=== PATIENT | female | born 1980 | race African-American/Black ===

== ENCOUNTER 2017-04-01 00:10 | Emergency (ER) | payer MEDICAID ==
[~2017-04-01] VITALS: Ht 162.6 cm; Wt 96.6 kg
[~2017-04-01 00:10] MED LIST: ARIP2TAB; MIRT30TA3; NUTRCAP
[2017-04-01 00:22] VITALS: BP 137/88
[2017-04-01 01:20] LABS: Urine Bilirubin Negative (Negative); Urine Blood Negative /uL (Negative); Urine Color Yellow (Yellow); Urine Glucose Normal (Normal); Urine Ketone Negative (Negative); Urine Nitrite Negative (Negative); Urine RBC 2 /hpf (0 - 4); Urine Squamous Epithelial Cell FEW /hpf (<5); Urine Urobilinogen Normal (Negative); Urine pH 6.5 (5.0-8.0)
== END 2017-04-01 01:44 | disposition home or self-care (01) ==
LOC: ER 00:10
DX: N39.0 Urinary tract infection, site not specified (principal); F17.210 Nicotine dependence, cigarettes, uncomplicated; Z87.440 Personal history of urinary (tract) infections
CPT/HCPCS: 81001; 81025

== ENCOUNTER 2018-07-07 10:21 | Observation (INO) | payer MEDICAID ==
[~2018-07-07] VITALS: Ht 162.6 cm; Wt 99.3 kg
[~2018-07-07 10:21] MED LIST changes: -ARIP2TAB; +ARIP2TAB PO; +DIP25C PO; -MIRT30TA3; -NUTRCAP; +NUTRCAP PO
[2018-07-07] MEDS ORDERED: ACETAMINOPHEN 325 MG TAB PO ONE (17:00)
[2018-07-07 18:52] LABS: Albumin 3.4 g/dL (3.4-5.0); BUN/Creatinine Ratio 11.1; Calcium 8.1 mg/dL (8.5-10.1); Magnesium 2.2 mg/dL (1.6-2.6); Potassium 3.8 mmol/L (3.5-5.1)
[2018-07-07 18:54] LABS: Basophils # (auto) 0 uL; Basophils % (auto) 0.5 % (0.0-2.0); Bilirubin, Total 0.3 mg/dL (0.2-1.0); Eosinophils # (auto) 0.1 uL; Eosinophils % (auto) 1.4 % (0.0-7.0); Hematocrit 37.8 % (36.0-46.0); Hemoglobin 12.7 g/dL (12.2-16.2); Lymphocytes % (auto) 37.2 % (10.0-50.0); Mean Corpuscular Hemoglobin 30.7 pg (28.0-32.0); Mean Corpuscular Hgb Conc. 33.6 g/dL (32.0-36.0); Mean Corpuscular Volume 91.4 fL (80.0-100.0); Monocytes # (auto) 0.6 uL; Monocytes % (auto) 7.6 % (0.0-12.0); Neutrophils # (auto) 4.3 uL; Neutrophils % (auto) 53.3 % (37.0-80.0); Nucleated Red Blood Cells % 0.2 %; Platelet Count (auto) 272 10^3/uL (140-450); Red Blood Cells 4.14 10^6/uL (4.0-5.20); Red Cell Distribution Width 13.6 % (11.8-14.3); Total Protein 7.6 g/dL (6.4-8.2); White Blood Cell 8.1 10^3/uL (4.4-10.8)
[2018-07-07 19:08] LABS: INR 0.93 (0.9-1.15); Partial Thromboplastin Time 25.7 sec (23.78-33.04)
[2018-07-07] MEDS ORDERED: KETOROLAC TROMETH 30 MG/ML 1ML VIAL IV ONE (22:00)
[2018-07-07] MEDS ORDERED: cefTRIAXone 1GM/10ml IVPUSH 10 ML IV ONE (22:00)
[2018-07-07 22:55] VITALS: BP 146/72
== END 2018-07-07 23:22 | disposition home or self-care (01) | DRG 347 ==
LOC: ER 10:21 → OVERFLOW 10:22 → ER 23:22
PROVIDERS: ADMIT Family Medicine; ATTEND Family Medicine
DX: S33.5XXA Sprain of ligaments of lumbar spine, initial encounter (principal); N30.00 Acute cystitis without hematuria; F17.210 Nicotine dependence, cigarettes, uncomplicated; X58.XXXA Exposure to other specified factors, initial encounter; Y92.89 Other specified places as the place of occurrence of the external cause; Y93.89 Activity, other specified; Y99.8 Other external cause status
CPT/HCPCS: 36415; 71045; 72100; 80053; 83735; 83880; 84702; 85025; 85610; 85730; 93970; 96374; 96375; 99285; G0378; J0696; J1885; 93005

== ENCOUNTER 2021-02-27 07:36 | Emergency (ER) | payer MEDICAID ==
[~2021-02-27] VITALS: Ht 162.6 cm; Wt 99.8 kg
[2021-02-27 07:36] VITALS: BP 148/90
[2021-02-27 08:25] LABS: Basophils # (auto) 0 10 ^3/uL (0-0.2); Basophils % (auto) 0.4 % (0.0-2.0); Eosinophils # (auto) 0.1 10 ^3/uL (0-0.8); Eosinophils % (auto) 0.9 % (0.0-7.0); Hematocrit 38.7 % (36.0-46.0); Hemoglobin 13.1 g/dL (12.2-16.2); Lymphocytes # (auto) 2.6 10 ^3/uL (0.4-5.4); Lymphocytes % (auto) 33.9 % (10.0-50.0); Mean Corpuscular Hemoglobin 30.4 pg (28.0-32.0); Mean Corpuscular Hgb Conc. 33.8 g/dL (32.0-36.0); Mean Corpuscular Volume 90.2 fL (80.0-100.0); Monocytes # (auto) 0.5 10 ^3/uL (0-1.3); Monocytes % (auto) 6.4 % (0.0-12.0); Neutrophils # (auto) 4.5 10 ^3/uL (1.6-8.6); Neutrophils % (auto) 58.4 % (37.0-80.0); Nucleated Red Blood Cells % 0.2 %; Platelet Count (auto) 246 10^3/uL (140-450); Red Blood Cells 4.29 10^6/uL (4.0-5.20); Red Cell Distribution Width 13.5 % (11.8-14.3); White Blood Cell 7.8 10^3/uL (4.4-10.8)
[2021-02-27 08:39] LABS: Albumin 3.5 g/dL (3.4-5.0); Calcium 8.7 mg/dL (8.5-10.1); Potassium 3.3 mmol/L (3.5-5.1)
[2021-02-27 08:43] LABS: BUN/Creatinine Ratio 13.6; Bilirubin, Total 0.4 mg/dL (0.2-1.0); Total Protein 7.4 g/dL (6.4-8.2)
== END 2021-02-27 10:42 | disposition home or self-care (01) ==
LOC: ER 07:36
DX: R60.9 Edema, unspecified (principal); F19.20 Other psychoactive substance dependence, uncomplicated; F17.200 Nicotine dependence, unspecified, uncomplicated; F12.10 Cannabis abuse, uncomplicated; Z87.440 Personal history of urinary (tract) infections
CPT/HCPCS: 36415; 80053; 83880; 85025; 93970

== ENCOUNTER 2021-09-22 15:37 | Emergency (ER) | payer MEDICAID ==
[~2021-09-22] VITALS: Ht 162.6 cm; Wt 106.6 kg
[2021-09-22 16:16] LABS: Urine Bacteria FEW /hpf (None Seen); Urine Blood Negative /uL (Negative); Urine Specific Gravity 1.016 (1.001-1.035); Urine WBC 3 /hpf (0 - 5)
[2021-09-22 16:38] LABS: Basophils # (auto) 0 10 ^3/uL (0-0.2); Basophils % (auto) 0.5 % (0.0-2.0); Eosinophils # (auto) 0 10 ^3/uL (0-0.8); Eosinophils % (auto) 0.6 % (0.0-7.0); Hematocrit 38.1 % (36.0-46.0); Hemoglobin 12.7 g/dL (12.2-16.2); Lymphocytes # (auto) 2.7 10 ^3/uL (0.4-5.4); Lymphocytes % (auto) 39.2 % (10.0-50.0); Mean Corpuscular Hemoglobin 29.5 pg (28.0-32.0); Mean Corpuscular Hgb Conc. 33.2 g/dL (32.0-36.0); Mean Corpuscular Volume 88.7 fL (80.0-100.0); Monocytes # (auto) 0.5 10 ^3/uL (0-1.3); Monocytes % (auto) 7.4 % (0.0-12.0); Neutrophils # (auto) 3.6 10 ^3/uL (1.6-8.6); Neutrophils % (auto) 52.3 % (37.0-80.0); Nucleated Red Blood Cells % 0.1 %; Red Cell Distribution Width 13.4 % (11.8-14.3); White Blood Cell 6.9 10^3/uL (4.4-10.8)
[2021-09-22 16:51] LABS: Albumin 3.3 g/dL (3.4-5.0); BUN/Creatinine Ratio 12.3; Calcium 8.5 mg/dL (8.5-10.1); Potassium 3.7 mmol/L (3.5-5.1)
[2021-09-22 16:54] LABS: Bilirubin, Total 0.4 mg/dL (0.2-1.0); Total Protein 7.6 g/dL (6.4-8.2)
[2021-09-22 19:40] VITALS: BP 142/87
== END 2021-09-22 20:49 | disposition home or self-care (01) ==
LOC: ER 15:37
DX: N39.0 Urinary tract infection, site not specified (principal); R22.43 Localized swelling, mass and lump, lower limb, bilateral; E44.0 Moderate protein-calorie malnutrition; F17.210 Nicotine dependence, cigarettes, uncomplicated; Z68.41 Body mass index [BMI] 40.0-44.9, adult; Z91.040 Latex allergy status; Z88.6 Allergy status to analgesic agent; Z79.899 Other long term (current) drug therapy; Z90.89 Acquired absence of other organs; Z98.890 Other specified postprocedural states
CPT/HCPCS: 36415; 80053; 81001; 85025; 93970

== ENCOUNTER 2022-01-31 14:46 | Emergency (ER) | payer MEDICAID ==
[~2022-01-31] VITALS: Ht 162.6 cm; Wt 106.1 kg
[2022-01-31 17:48] LABS: Urine Bacteria FEW /hpf (None Seen); Urine Blood 3+ /uL (Negative); Urine Specific Gravity 1.009 (1.001-1.035); Urine WBC 2 /hpf (0 - 5)
[2022-01-31 19:01] LABS: Basophils # (auto) 0 10 ^3/uL (0-0.2); Basophils % (auto) 0.3 % (0.0-2.0); Eosinophils # (auto) 0.1 10 ^3/uL (0-0.8); Eosinophils % (auto) 0.9 % (0.0-7.0); Hematocrit 37.9 % (36.0-46.0); Hemoglobin 12.6 g/dL (12.2-16.2); Lymphocytes # (auto) 2.9 10 ^3/uL (0.4-5.4); Lymphocytes % (auto) 36.9 % (10.0-50.0); Mean Corpuscular Hemoglobin 29.5 pg (28.0-32.0); Mean Corpuscular Hgb Conc. 33.3 g/dL (32.0-36.0); Mean Corpuscular Volume 88.5 fL (80.0-100.0); Monocytes # (auto) 0.5 10 ^3/uL (0-1.3); Monocytes % (auto) 6.7 % (0.0-12.0); Neutrophils # (auto) 4.4 10 ^3/uL (1.6-8.6); Neutrophils % (auto) 55.2 % (37.0-80.0); Nucleated Red Blood Cells % 0.1 %; Red Blood Cells 4.29 10^6/uL (4.0-5.20); Red Cell Distribution Width 13.3 % (11.8-14.3); White Blood Cell 7.9 10^3/uL (4.4-10.8)
[2022-01-31 19:25] LABS: Albumin 3.7 g/dL (3.4-5.0); Calcium 8.7 mg/dL (8.5-10.1); Potassium 3.3 mmol/L (3.5-5.1)
[2022-01-31 19:30] LABS: BUN/Creatinine Ratio 8.2; Bilirubin, Total 0.5 mg/dL (0.2-1.0); Total Protein 7.9 g/dL (6.4-8.2)
[2022-01-31 19:55] VITALS: BP 149/93
== END 2022-01-31 20:00 | disposition home or self-care (01) ==
LOC: ER 14:46
DX: N93.8 Other specified abnormal uterine and vaginal bleeding (principal); F12.10 Cannabis abuse, uncomplicated; F17.210 Nicotine dependence, cigarettes, uncomplicated; Z91.040 Latex allergy status
CPT/HCPCS: 36415; 76830; 76856; 80053; 81001; 84702; 85025

== ENCOUNTER 2022-05-30 06:41 | Emergency (ER) | payer MEDICAID ==
[~2022-05-30] VITALS: Ht 162.6 cm; Wt 107.5 kg
[2022-05-30 06:51] VITALS: BP 152/91
[2022-05-30 08:17] LABS: Basophils # (auto) 0 10 ^3/uL (0-0.2); Basophils % (auto) 0.8 % (0.0-2.0); Eosinophils # (auto) 0 10 ^3/uL (0-0.8); Eosinophils % (auto) 0.8 % (0.0-7.0); Hematocrit 37.8 % (36.0-46.0); Hemoglobin 12.2 g/dL (12.2-16.2); Lymphocytes # (auto) 2.5 10 ^3/uL (0.4-5.4); Lymphocytes % (auto) 40.9 % (10.0-50.0); Mean Corpuscular Hemoglobin 28.8 pg (28.0-32.0); Mean Corpuscular Hgb Conc. 32.2 g/dL (32.0-36.0); Mean Corpuscular Volume 89.5 fL (80.0-100.0); Monocytes # (auto) 0.4 10 ^3/uL (0-1.3); Monocytes % (auto) 5.7 % (0.0-12.0); Neutrophils # (auto) 3.2 10 ^3/uL (1.6-8.6); Neutrophils % (auto) 51.8 % (37.0-80.0); Red Blood Cells 4.23 10^6/uL (4.0-5.20); Red Cell Distribution Width 13.4 % (11.8-14.3); White Blood Cell 6.2 10^3/uL (4.4-10.8)
[2022-05-30 08:33] LABS: BUN/Creatinine Ratio 12.9; Calcium 8.4 mg/dL (8.5-10.1); Potassium 3.5 mmol/L (3.5-5.1)
[2022-05-30 08:40] LABS: Urine Bacteria FEW /hpf (None Seen); Urine Blood Negative /uL (Negative); Urine Mucus FEW (None Seen); Urine Specific Gravity 1.025 (1.001-1.035); Urine WBC 2 /hpf (0 - 5)
[2022-05-30] MEDS ORDERED: POTA8TAB2 PO (08:59)
[2022-05-30] MEDS ORDERED: FURO1TAB31 PO (08:59)
== END 2022-05-30 09:25 | disposition home or self-care (01) ==
LOC: ER 06:41
DX: R60.0 Localized edema (principal); E66.01 Morbid (severe) obesity due to excess calories; F17.210 Nicotine dependence, cigarettes, uncomplicated; Z68.41 Body mass index [BMI] 40.0-44.9, adult; Z90.49 Acquired absence of other specified parts of digestive tract; Z79.899 Other long term (current) drug therapy; Z88.8 Allergy status to other drugs, medicaments and biological substances; Z91.040 Latex allergy status
CPT/HCPCS: 36415; 80048; 81001; 83880; 84550; 85025; 93970

== ENCOUNTER 2022-09-28 17:13 | Emergency (ER) | payer MEDICAID ==
[~2022-09-28] VITALS: Ht 162.6 cm; Wt 104.3 kg
[~2022-09-28 17:13] MED LIST changes: +FURO1TAB31 PO; +POTA8TAB2 PO
[2022-09-28 18:03] VITALS: BP 146/93
[2022-09-28 19:02] LABS: Basophils # (auto) 0 10 ^3/uL (0-0.2); Basophils % (auto) 0.4 % (0.0-2.0); Eosinophils # (auto) 0 10 ^3/uL (0-0.8); Eosinophils % (auto) 0.6 % (0.0-7.0); Hematocrit 40.5 % (36.0-46.0); Hemoglobin 13.3 g/dL (12.2-16.2); Lymphocytes # (auto) 2.8 10 ^3/uL (0.4-5.4); Lymphocytes % (auto) 32.8 % (10.0-50.0); Mean Corpuscular Hemoglobin 29.6 pg (28.0-32.0); Mean Corpuscular Hgb Conc. 32.7 g/dL (32.0-36.0); Mean Corpuscular Volume 90.3 fL (80.0-100.0); Monocytes # (auto) 0.5 10 ^3/uL (0-1.3); Monocytes % (auto) 6.1 % (0.0-12.0); Neutrophils # (auto) 5.1 10 ^3/uL (1.6-8.6); Neutrophils % (auto) 60.1 % (37.0-80.0); Nucleated Red Blood Cells % 0.1 %; Red Blood Cells 4.49 10^6/uL (4.0-5.20); Red Cell Distribution Width 13.4 % (11.8-14.3); White Blood Cell 8.5 10^3/uL (4.4-10.8)
[2022-09-28 19:48] LABS: Albumin 3.8 g/dL (3.4-5.0); BUN/Creatinine Ratio 14.9; Calcium 9.3 mg/dL (8.5-10.1); Potassium 4.1 mmol/L (3.5-5.1)
[2022-09-28 19:56] LABS: Bilirubin, Total 0.3 mg/dL (0.2-1.0); Total Protein 7.7 g/dL (6.4-8.2)
[2022-09-28] MEDS ORDERED: HYDROcodone-ACET 5/325MG TAB PO ONE (23:00)
== END 2022-09-29 00:09 | disposition home or self-care (01) ==
LOC: ER 17:13
DX: M25.462 Effusion, left knee (principal); F17.210 Nicotine dependence, cigarettes, uncomplicated; F41.9 Anxiety disorder, unspecified; F32.9 Major depressive disorder, single episode, unspecified; Z91.040 Latex allergy status; Z88.6 Allergy status to analgesic agent
CPT/HCPCS: 36415; 73562; 80053; 83880; 84484; 85025; 93971

== ENCOUNTER 2022-11-12 01:20 | Emergency (ER) | payer MEDICAID ==
[~2022-11-12] VITALS: Ht 162.6 cm; Wt 104.0 kg
[2022-11-12 03:23] LABS: Urine Bacteria NONE SEEN /hpf (None Seen); Urine Blood 3+ /uL (Negative); Urine Mucus FEW (None Seen); Urine Specific Gravity 1.024 (1.001-1.035); Urine WBC 13 /hpf (0 - 5)
[2022-11-12 03:26] LABS: Basophils # (auto) 0 10 ^3/uL (0-0.2); Basophils % (auto) 0.5 % (0.0-2.0); Eosinophils # (auto) 0.1 10 ^3/uL (0-0.8); Eosinophils % (auto) 0.8 % (0.0-7.0); Hematocrit 37.3 % (36.0-46.0); Hemoglobin 12.5 g/dL (12.2-16.2); Lymphocytes % (auto) 39.2 % (10.0-50.0); Mean Corpuscular Hgb Conc. 33.5 g/dL (32.0-36.0); Mean Corpuscular Volume 89.6 fL (80.0-100.0); Monocytes # (auto) 0.6 10 ^3/uL (0-1.3); Monocytes % (auto) 7.5 % (0.0-12.0); Neutrophils # (auto) 3.9 10 ^3/uL (1.6-8.6); Nucleated Red Blood Cells % 0.1 %; Red Blood Cells 4.16 10^6/uL (4.0-5.20); Red Cell Distribution Width 13.3 % (11.8-14.3); White Blood Cell 7.5 10^3/uL (4.4-10.8)
[2022-11-12 03:53] LABS: Albumin 3.5 g/dL (3.4-5.0); BUN/Creatinine Ratio 17.6; Calcium 8.8 mg/dL (8.5-10.1); Potassium 3.7 mmol/L (3.5-5.1)
[2022-11-12 03:56] LABS: Bilirubin, Total 0.3 mg/dL (0.2-1.0); Total Protein 7.4 g/dL (6.4-8.2)
[2022-11-12] MEDS ORDERED: cefTRIAXone SOD 1,000 MG VL IM ONE (04:30)
[2022-11-12] MEDS ORDERED: DOCUSATE SOD 100 MG CAP PO ONE (04:30)
[2022-11-12] MEDS ORDERED: NITR-87 PO (05:23)
[2022-11-12 06:56] VITALS: BP 142/95
== END 2022-11-12 06:55 | disposition home or self-care (01) ==
LOC: ER 01:20
DX: N39.0 Urinary tract infection, site not specified (principal); F17.210 Nicotine dependence, cigarettes, uncomplicated; F41.9 Anxiety disorder, unspecified; F32.9 Major depressive disorder, single episode, unspecified; Z90.49 Acquired absence of other specified parts of digestive tract; Z88.6 Allergy status to analgesic agent; Z91.040 Latex allergy status; Z79.899 Other long term (current) drug therapy
CPT/HCPCS: 36415; 80053; 81001; 81025; 83690; 85025; 96372; 99283; J0696

== ENCOUNTER 2025-02-26 02:14 | Emergency (ER) | payer MEDICAID ==
[~2025-02-26] VITALS: Ht 162.6 cm; Wt 111.3 kg
[~2025-02-26 02:14] MED LIST changes: -DIP25C PO; +DIPH25CA51 PO; +NITR-87 PO; -POTA8TAB2 PO; +POTA8TAB38 PO
--- NOTE | 2025-02-26 02:28 | ED.PDOC ---
Back pain HPI HPI Comments C/C of lower leg edema x4 days. States recently started oral control approximally 1 month ago. Pt states she has not sat for prolonged periods, nor had injury, but legs have been edematous with no cause. Noted +1 pitting edema to BLE. PMH of Pre-Diabetes. Pt able to ambulate with steady gait. Pt has additional complaint of urinary frequency. Denies dysuria or hematuria. VSS. Pt A&O x4. Denies chest pain, difficulty breathing, shortness of breath, nausea, vomiting, or recent travel. She does state she arm 1 [place]. DENNISE ALEX PA-C, HPI: A 45 YEAR OLD FEMALE PRESENTS TO THE ED WITH COMPLAINT OF BILATERAL LOWER LEG SWELLING. PATIENT STATES SHE HAS BEEN EXPERIENCING BILATERAL LOWER LEG SWELLING FOR THE PAST 4 DAYS. PATIENT NOTES HE HAS A JOB THAT INVOLVES A LOT OF STANDING AND WALKING. PATIENT DENIES FEVER, CHILLS, SHORTNESS OF BREATH, CHEST PAIN, ABDOMINAL PAIN, NAUSEA, VOMITING, HEADACHE, OR OTHER COMPLAINTS. NO OTHER SYMPTOMS OR MODIFYING FACTORS AT THIS TIME. PATIENT IS ALERT, ORIENTED X 4, AND HAS STEADY GAIT. Time Seen by MD: 02:27 Primary Care Provider: unknown Reviewed Notes: Nurses Notes, Medications, Allergies Allergies: Coded Allergies: Latex (Verified Allergy, Intermediate, BURNING, 02/27/21) Ibuprofen (Verified Allergy, Unknown, 02/27/21) Home Meds Active Scripts Potassium Chloride (Klor-Con 8) 8 Meq Tab, 8 MEQ PO DAILY, #10 TAB Prov:MELISSA ALEX 02/26/25 Furosemide (Lasix) 40 Mg Tab, 40 MG PO DAILY for 7 Days, #7 TAB Prov:MELISSA ALEX 02/26/25 Nitrofurantoin Monohydrate Mac (Macrobid) 100 Mg Cap, 100 MG PO BID for 7 Days, #14 CAP Prov:MARCUS BARAJAS MD 11/12/22 Potassium Chloride (Klor-Con 8) 8 Meq Tab, 8 MEQ PO DAILY, #10 TAB Prov:MELISSA ALEX 05/30/22 Furosemide (Lasix) 40 Mg Tab, 40 MG PO DAILY for 10 Days, #10 TAB Prov:MELISSA ALEX 05/30/22 Reported Medications Diphenhydramine Hcl (BENADRYL CAPSULE) 25 Mg Cp, 50 MG PO HS, CP 06/21/17 [place] Aspartate (Lithate) Cap, 600 MG PO HS 07/15/13 Aripiprazole (Abilify) 2 Mg Tab, 20 MG PO HS 07/15/13 Information Source: Patient Mode of Arrival: Ambulatory Timing: Days Duration: Since onset Severity: Moderate Prehospital treatment: None Onset: Spontaneous Associated signs and symptoms: None Past Medical History PAST MEDICAL HISTORY: Anxiety, Depression, UTI'S Surgical History: Appendectomy, Hernia Repair DIRECTOR OF SURGERY History: No Pertinent DIRECTOR OF SURGERY History Family History Family History: Reviewed,noncontributory to illness, Family hx of DM, Family hx of Cancer, Family hx of heart fady Social History Smoker: Cigarettes, Less Than 1 Pack/Day Alcohol: Denies ETOH Use Drugs: Denies Drug Use Lives In: Home Constitutional: denies: chills, diaphoresis, fatigue, fever, malaise, sweats, weakness, others EENTM: denies: blurred vision, double vision, ear bleeding, ear discharge, ear drainage, ear pain, ear ringing, eye pain, eye redness, hearing loss, mouth pain, mouth swelling, nasal discharge, nose bleeding, nose congestion, nose pain, photophobia, tearing, throat pain, throat swelling, voice changes, others Respiratory: denies: cough, hemoptysis, orthopnea, SOB at rest, shortness of breath, SOB with excertion, stridor, wheezing, others Cardiovascular: denies: chest pain, dizzy spells, diaphoresis, Dyspnea on e xertion, edema, irregular heart beat, left arm pain, lightheadedness, palpitations, PND, syncope, others Gastrointestinal: denies: abdomen distended, abdominal pain, blood streaked bowels, constipated, diarrhea, dysphagia, difficulty swallowing, hematemesis, melena, nausea, poor appetite, poor fluid intake, rectal bleeding, rectal pain, vomiting, others Genitourinary: denies: abnormal vagina bleeding, burning, dyspareunia, dysuria, flank pain, frequency, hematuria, incontinence, pain, , vagina discharge, urgency, others Neurological: denies: dizziness, fainting, headache, left sided numbness, left sided weakness, numbness, paresthesia, pre-existing deficit, right sided numbness, right sided weakness, seizure, speech problems, tingling, tremors, weakness, others Musculoskeletal: reports: others (BILATERAL LOWER LEG SWELLING); denies: back pain, gout, joint pain, joint swelling, muscle pain, muscle stiffness, neck pain Integumetry: denies: bruises, change in color, change in hair/nails, dryness, laceration, lesions, lumps, rash, wounds, others Allergic/Immunocompromised: denies: Difficulty Healing, Frequent Infections, Hives, Itching, others Hematologic/Lymphatic: denies: anemia, blood clots, easy bleeding, easy bruising, swollen glands, others Endocrine: denies: excessive hunger, excessive sweating, excessive thirst, excessive urination, flushing, intolerance to cold, intolerance to heat, unexplained weight gain, unexplained weight loss, others Psychiatric: denies: anxiety, bipolar disorder, depression, hopeless, panic disorder, schizophrenia, sleepless, suicidal, others Physical Exam General Appearance: No Apparent Distress, Obese HEENT: Normal ENT Inspection, Pharynx Normal, TMs Normal Neck: Full Range of Motion, Non-Tender Respiratory: Lungs Clear, No Respiratory Distress, Normal Breath Sounds Cardiovascular: No Edema, No JVD, No Murmur, No Gallop, Normal Peripheral Pulses, Regular Rate/Rhythm Breast Exam: Deferred Gastrointestinal: No Organomegaly, Non Tender, No Pulsatile Mass, Normal Bowel Sounds, Soft Genitalia: Deferred Pelvic: Deferred Rectal: Deferred Extremities: Leg edema, No calf tenderness, Normal capillary refill, Normal range of motion, Non-tender, Pedal edema (Plus one pedal edema strength sensory motion intact positive pedal pulses), Swelling (BILATERAL LOWER LEGS, NO REDNESS AND SKIN RASH, NO DVT SIGNS. ) Musculoskeletal : Apperance: Normal Neurologic: Alert, senior marketing coordinator II-XII nml as Tested, No Motor Deficits, Normal Affect, Normal Mood, No Sensory Deficits Cerebellar Function: Normal Reflexes: Normal Skin: Dry, Normal Color, Warm Peripheral Pulses: 2+ carotid (R), 2+ carotid (L), 2+ dorsalis pedis (R), 2+ dorsalis pedis (L) Lymphatic: No Adenopathy Was a procedure done? Was a procedure done?: No Back Pain Differential Dx Differential Diagnosis: Musculoskeletal Pain, Strain, Other (CHF, acute renal failure, DVT) Other Differential Diagnosis DEPENDENT EDEMA OF LOWER LEGS X-Ray, Labs, Meds, VS Vital Signs Date Time Temp Pulse Resp B/P (MAP) Pulse Ox O2 Delivery O2 Flow Rate FiO2 02/26/25 03:24 98.9 82 19 146/91 (109) 98 98.9 02/26/25 03:24 82 19 98 Room Air 02/26/25 02:36 99.2 91 16 150/85 (106) 97 99.2 Lab Test 02/26/25 05:03 02/26/25 03:36 02/26/25 02:34 Range/Units D-Dimer, Quantitative 0.83 H 0.0-0.49 mg/L FEU White Blood Count 7.4 4.4-10.8 10^3/uL Red Blood Count 3.78 L 4.0-5.20 10^6/uL Hemoglobin 11.1 L 12.2-16.2 g/dL Hematocrit 33.3 L 36.0-46.0 % Mean Corpuscular Volume 88.1 80.0-100.0 fL Mean Corpuscular Hemoglobin 29.5 28.0-32.0 pg Mean Corpuscular Hemoglobin Concent 33.4 32.0-36.0 g/dL Red Cell Distribution Width 13.0 11.8-14.3 % Platelet Count 244 140-450 10^3/uL Mean Platelet Volume 7.7 6.9-10.8 fL Neutrophils (%) (Auto) 52.5 37.0-80.0 % Lymphocytes (%) (Auto) 40.5 10.0-50.0 % Monocytes (%) (Auto) 5.3 0.0-12.0 % Eosinophils (%) (Auto) 1.3 0.0-7.0 % Basophils (%) (Auto) 0.4 0.0-2.0 % Neutrophils # (Auto) 3.9 1.6-8.6 10 ^3/uL Lymphocytes # (Auto) 3.0 0.4-5.4 10 ^3/uL Monocytes # (Auto) 0.4 0-1.3 10 ^3/uL Eosinophils # (Auto) 0.1 0-0.8 10 ^3/uL Basophils # (Auto) 0 0-0.2 10 ^3/uL Nucleated Red Blood Cells 0.0 % Sodium Level 137 136-145 mmol/L Potassium Level 3.6 3.5-5.1 mmol/L Chloride Level 105 98-107 mmol/L Carbon Dioxide Level 23 20-31 mmol/L Anion Gap 9 5-15 Blood Urea Nitrogen 10 9-23 mg/dL Creatinine 0.93 0.550-1.02 mg/dL Glomerular Filtration Rate Calc 78 >90 mL/min BUN/Creatinine Ratio 10.8 10.0-20.0 Serum Glucose 192 H 74-106 mg/dL Calcium Level 9.3 8.7-10.4 mg/dL Total Bilirubin 0.2 0.2-1.0 mg/dL Aspartate Amino Transferase (AST) 15 13-40 U/L Alanine Aminotransferase (ALT) 17 7-40 U/L Alkaline Phosphatase 51 46-116 U/L B-Type Natriuretic Peptide 34.30 0-100 pg/mL Total Protein 7.1 5.7-8.2 g/dL Albumin 4.1 3.2-4.8 g/dL Urine Color Colorless Yellow Urine Clarity Clear Clear Urine pH 5.5 5.0-9.0 Urine Specific [place] 1.008 1.001-1.035 Urine Protein Negative Negative Urine Ketones Negative Negative Urine Blood 1+ H Negative /uL Urine Nitrite Negative Negative Urine Bilirubin Negative Negative Urine Urobilinogen Normal Negative mg/dL Urine Leukocyte Esterase Negative Negative /uL Urine RBC <1 0 - 4 /hpf Urine Microscopic WBC < 1 0-5 /HPF Urine Squamous Epithelial Cells None seen <5 /hpf Urine Bacteria None seen None Seen /hpf Urine Glucose Normal Normal mg/dL CHEST RADIOGRAPH Indication: sob Technique: Frontal and lateral view of the chest was obtained Comparison: None FINDINGS: Lines and Tubes: None Lungs: Clear Pleura: No effusion. No pneumothorax. Cardiomediastinal contours: Unremarkable Bones: Unremarkable IMPRESSION: 1. No evidence of acute disease. 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 DENNISE ALEX PA-C 0600: PATIENT CARE SIGNED OUT TO ME DUE TO SHIFT CHANGE. EXTERNAL MEDICAL RECORDS REVIEWED: [NONE] INDEPENDENT HISTORIANS: [NONE] SOCIAL DETERMINANTS OF HEALTH: [NONE] LABS ORDERED: CBC CMP, BNP, D-DIMER, UA REVIEWED AND INTERPRETED RESULTS: D-DIMER 0.83 IMAGING ORDERED: XR CHEST, CV VENOUS DOPPLER LOW EXT BILAT: [INTERPRETED BY U.S. TECH. NO DVT VISUALIZED AT THIS TIME. PENDING RADIOLOGY REVIEW.] PROCEDURES PERFORMED: NONE CRITICAL CARE TIME: NONE I HAVE DISCUSSED THE PATIENT WITH THE ATTENDING PHYSICIAN DR. BARAJAS AND HE AGREES WITH THE PATIENT'S PLAN OF CARE. I HAVE INFORMED THE PATIENT THAT SINCE HER D-DIMER IS MILDLY ELEVATED THAT SHE WOULD NEED A CT ANGIO CHEST TO RULE OUT A PULMONARY EMBOLISM. PATIENT STATED THAT SHE HAD NO CHEST PAIN OR SHORTNESS OF BREATH AND DOES NOT WANT TO STAY TO HAVE A CT ANGIO CHEST DONE AT THIS TIME AND WOULD LIKE TO SIGN OUT AMA. PATIENT WAS INFORMED OF THE RISKS AND CONSEQUENCES ASSOCIATED WITH SIGNING OUT AMA AND STILL INSISTED ON LEAVING. PATIENT SIGNED OUT AMA, BUT REQUESTED A PRESCRIPTION FOR WATER PILLS. Images Reviewed?: Images reviewed and evaluated by me Time of 1ST Reevaluation: 07:40 Reevaluation 1ST: Unchanged Patient Education/Counseling: Diagnosis, Treatment Family Education/Counseling: Diagnosis, Treatment Assigned to Dr. DENNISE ALEX PA-C Change of Shift?: Yes Departure 1 Departure Time of Disposition: 07:42 Impression: Primary Impression: Dependent edema Additional Impressions: Hyperglycemia Elevated d-dimer Morbid obesity Disposition: LEFT AGAINST MEDICAL ADVICE Condition: Stable e-Prescriptions Potassium Chloride (Klor-Con 8) 8 Meq Tab 8 MEQ PO DAILY, #10 TAB Prov: MELISSA ALEX 02/26/25 Furosemide (Lasix) 40 Mg Tab 40 MG PO DAILY for 7 Days, #7 TAB Prov: MELISSA ALEX 02/26/25 Critical Care Note Critical Care Time?: No Stability Stability form required: No I personally scribed for MELISSA ALEX ([email or web address]) on 02/26/25 at 07:36. Electronically submitted by Priyank Munguia ([email or web address]). LIEN LALA Feb 26, 2025 02:28 MELISSA ALEX Feb 26, 2025 07:36
[2025-02-26 02:56] LABS: Urine Bacteria None Seen /hpf (None Seen)
[2025-02-26 03:20] LABS: Urine Blood 1+ /uL (Negative); Urine Clarity Clear (Clear); Urine Color Colorless (Yellow); Urine Protein, UAD Negative (Negative); Urine Specific Gravity 1.008 (1.001-1.035); Urine Squamous Epithelial Cell None Seen /hpf (<5); Urine Urobilinogen Normal (Negative); Urine WBC < 1 /HPF (0-5); Urine pH 5.5 (5.0-9.0)
--- NOTE | 2025-02-26 03:20 | DVH ---
CHEST RADIOGRAPH Indication: sob Technique: Frontal and lateral view of the chest was obtained Comparison: None FINDINGS: Lines and Tubes: None Lungs: Clear Pleura: No effusion. No pneumothorax. Cardiomediastinal contours: Unremarkable Bones: Unremarkable IMPRESSION: 1. No evidence of acute disease.
[2025-02-26 03:24] VITALS: BP 146/91; PULSE 82; RESP 19; TEMP 98.9; O2SAT 98
[2025-02-26 03:45] LABS: Basophils # (auto) 0 10 ^3/uL (0-0.2); Basophils % (auto) 0.4 % (0.0-2.0); Eosinophils # (auto) 0.1 10 ^3/uL (0-0.8); Eosinophils % (auto) 1.3 % (0.0-7.0); Hematocrit 33.3 % (36.0-46.0); Hemoglobin 11.1 g/dL (12.2-16.2); Lymphocytes % (auto) 40.5 % (10.0-50.0); Mean Corpuscular Hemoglobin 29.5 pg (28.0-32.0); Mean Corpuscular Hgb Conc. 33.4 g/dL (32.0-36.0); Mean Corpuscular Volume 88.1 fL (80.0-100.0); Monocytes # (auto) 0.4 10 ^3/uL (0-1.3); Monocytes % (auto) 5.3 % (0.0-12.0); Neutrophils # (auto) 3.9 10 ^3/uL (1.6-8.6); Neutrophils % (auto) 52.5 % (37.0-80.0); Platelet Count (auto) 244 10^3/uL (140-450); Red Blood Cells 3.78 10^6/uL (4.0-5.20); White Blood Cell 7.4 10^3/uL (4.4-10.8)
[2025-02-26 04:03] LABS: Alanine Aminotransferase 17 U/L (7-40); Albumin 4.1 g/dL (3.2-4.8); Alkaline Phosphatase 51 U/L (46-116); Anion Gap 9 (5-15); Aspartate Aminotransferase 15 U/L (13-40); BUN/Creatinine Ratio 10.8 (10.0-20.0); Blood Urea Nitrogen 10 mg/dL (9-23); Calcium 9.3 mg/dL (8.7-10.4); Carbon Dioxide 23 mmol/L (20-31); Chloride 105 mmol/L (98-107); Potassium 3.6 mmol/L (3.5-5.1); Sodium 137 mmol/L (136-145); Total Protein 7.1 g/dL (5.7-8.2)
[2025-02-26 04:07] LABS: Bilirubin, Total 0.2 mg/dL (0.2-1.0); Glucose 192 mg/dL (74-106)
--- NOTE | 2025-02-26 07:55 | DVH ---
Bilateral lower extremity venous duplex Clinical History: Lower extremity edema/pain Comparison: LT LOWER DVT on DOS: 09/28/22, BI LOWER DVT on DOS: 05/30/22, BLDVT on DOS: 05/30/22, BI LO WER DVT on DOS: 09/22/21 Technique: Duplex Doppler evaluation of the deep venous systems of both lower extremities from the common femora l veins to the popliteal veins including color Doppler and spectral/pulsed waveform analysis was perf ormed. Findings: RIGHT SIDE: The common femoral vein demonstrates appropriate compressibility and waveform variability. There is compressibility/patency of the great saphenous vein at the proximal thigh. The femoral vein demonstrates appropriate compressibility and waveform variability. The deep femoral vein demonstrates appropriate compressibility and waveform variability. The popliteal vein demonstrates appropriate compressibility and waveform variability. LEFT SIDE: The common femoral vein demonstrates appropriate compressibility and waveform variability. There is compressibility/patency of the great saphenous vein at the proximal thigh. The femoral vein demonstrates appropriate compressibility and waveform variability. The deep femoral vein demonstrates appropriate compressibility and waveform variability. The popliteal vein demonstrates appropriate compressibility and waveform variability. Impression: No right or left femoropopliteal venous thrombosis. Bilateral calf edema is present.
== END 2025-02-26 07:30 | disposition left against medical advice (07) ==
LOC: ER 02:14
DX: R60.9 Edema, unspecified (principal); R73.9 Hyperglycemia, unspecified; E66.01 Morbid (severe) obesity due to excess calories; F41.9 Anxiety disorder, unspecified; F32.A Depression, unspecified; F17.210 Nicotine dependence, cigarettes, uncomplicated; Z90.49 Acquired absence of other specified parts of digestive tract; Z98.890 Other specified postprocedural states; Z88.6 Allergy status to analgesic agent; Z79.899 Other long term (current) drug therapy
CPT/HCPCS: 36415; 71046; 80053; 81001; 83880; 85025; 85379; 93970